=== PATIENT | female | born 1985 | race African-American/Black ===

== ENCOUNTER 2024-12-19 | Emergency (ER) | payer OTHER ==
[~2024-12-19] VITALS: Ht 170.2 cm; Wt 64.0 kg
[~2024-12-19] MED LIST: IBUP-2030 PO; PREN-152 MT
[2024-12-19 00:03] VITALS: O2SAT 99
[2024-12-19 02:21] LABS: BASOPHILS % 0.9 % (0.0-2.0); EOSINOPHILS % 0.9 % (0.0-5.0); HEMATOCRIT. 37.6 % (36.0-48.0); HEMOGLOBIN. 11.6 g/dL (12.0-16.0); LYMPHOCYTES % 27.9 % (20.0-50.0); MEAN PLATELET VOLUME 8.9 fl (7.4-10.4); MONOCYTES % 7.8 % (2.0-8.0); NEUTROPHILS % 62.5 % (40.0-76.0); PLATELET 341 x1000/uL (130-400); RED BLOOD CELL COUNT 5.49 mill/uL (4.2-5.4); RED CELL DISTRIBUTION WIDTH 22.6 % (11.6-14.6)
[2024-12-19 02:32] LABS: ADD RBC MORPHOLOGY YES
[2024-12-19 02:33] LABS: CREATININE 1.2 mg/dL (0.6-1.0); UREA NITROGEN BLOOD 9 mg/dL (9-23)
[2024-12-19 02:35] LABS: ASPARTATE AMINOTRANSFERASE 19 IU/L (<34); BILIRUBIN DIRECT 0.1 mg/dL (<=3.0); BILIRUBIN TOTAL 0.4 mg/dL (0.1-1.0); PROTEIN TOTAL 7.1 g/dL (6.0-8.3)
[2024-12-19 03:24] LABS: PLATELET ESTIMATE NORMAL
[2024-12-19 03:29] LABS: HCG SCREEN NEGATIVE
[2024-12-19 05:25] VITALS: BP 144/90; PULSE 68; RESP 18; TEMP 37; O2SAT 98
== END 2024-12-19 05:30 | disposition home or self-care (01) ==
LOC: ER
DX: R46.2 Strange and inexplicable behavior (principal); I10 Essential (primary) hypertension; Z79.899 Other long term (current) drug therapy; Z59.00 Homelessness unspecified; Z20.822 Contact with and (suspected) exposure to COVID-19; Z88.0 Allergy status to penicillin
CPT/HCPCS: 36415; 80048; 80076; 80307; 80320; 80329; 84703; 85025; 87426; 93005; 99284; G0480

== ENCOUNTER 2025-01-15 19:56 | Emergency (ER) | payer MEDICAID ==
[~2025-01-15] VITALS: Ht 167.6 cm; Wt 53.0 kg
[2025-01-15 20:01] VITALS: O2SAT 98
[2025-01-15 21:01] LABS: HEMATOCRIT. 38.9 % (36.0-48.0); HEMOGLOBIN. 12.1 g/dL (12.0-16.0); MEAN PLATELET VOLUME 9.4 fl (7.4-10.4); PLATELET 265 x1000/uL (130-400); RED BLOOD CELL COUNT 5.44 mill/uL (4.2-5.4); RED CELL DISTRIBUTION WIDTH 24.5 % (11.6-14.6)
[2025-01-15 21:13] LABS: HCG SCREEN NEGATIVE
[2025-01-15 21:15] LABS: CREATININE 1.1 mg/dL (0.6-1.0); UREA NITROGEN BLOOD 11 mg/dL (9-23)
[2025-01-15 21:18] LABS: PLATELET ESTIMATE NORMAL
[2025-01-15 21:22] LABS: EOSINOPHILS % MANUAL 1.0 % (0.0-5.0); LYMPHOCYTES % MANUAL 29.0 % (20.0-60.0); MONOCYTES % MANUAL 7.0 % (2.0-8.0); NEUTROPHILS % MANUAL 63.0 % (45.0-75.0)
[2025-01-15] MEDS ORDERED: NALO4SPR BOTHNSTRLS (22:29)
[2025-01-15] MEDS: POTASSIUM CHLORIDE 20MEQ TABLET SR PO ONE (22:31)
[2025-01-15 23:34] VITALS: BP 107/64; PULSE 84; RESP 15; TEMP 37; O2SAT 98
[2025-02-16] MEDS ORDERED: ERYT1OIN6 BOTHEYE (09:03)
== END 2025-01-16 00:07 | disposition home or self-care (01) ==
LOC: ER 19:56
DX: T40.5X1A Poisoning by cocaine, accidental (unintentional), initial encounter (principal); E87.6 Hypokalemia; Z87.891 Personal history of nicotine dependence; Z88.0 Allergy status to penicillin; Y92.89 Other specified places as the place of occurrence of the external cause
CPT/HCPCS: 80048; 80320; 84703; 85025; 36415; 99284; 93005; Z7610; A4606; G0480

== ENCOUNTER 2025-03-15 13:51 | Emergency (ER) | payer MEDICAID ==
[~2025-03-15] VITALS: Ht 167.6 cm; Wt 58.0 kg
[~2025-03-15 13:51] MED LIST changes: +ERYT1OIN6 BOTHEYE; -PREN-152 MT
[2025-03-15 13:54] VITALS: BP 165/96; PULSE 112; RESP 18; O2SAT 99
[2025-03-15] MEDS: BACITRACIN ZINC OINT UDPKT TOP ONE (21:24)
== END 2025-03-15 21:27 | disposition home or self-care (01) ==
LOC: ER 13:51
DX: S11.91XA Laceration without foreign body of unspecified part of neck, initial encounter (principal); S01.319A Laceration without foreign body of unspecified ear, initial encounter; S09.8XXA Other specified injuries of head, initial encounter; Z88.0 Allergy status to penicillin; Y04.0XXA Assault by unarmed brawl or fight, initial encounter; Y93.89 Activity, other specified; Y92.89 Other specified places as the place of occurrence of the external cause; Y99.8 Other external cause status
CPT/HCPCS: 99284